=== PATIENT | female | born 1935 | race Caucasian/White ===

== ENCOUNTER 2020-04-12 11:51 | Emergency (ER) | payer MEDICARE, SELFPAY ==
--- NOTE | ~2020-04-12 | XR_ITS ---
[[id number] ] INDICATION: Left rib pain TECHNIQUE: Frontal projection of the upper left ribs, frontal projection of the lower left ribs, obli que projection of all the left ribs, frontal inspiratory chest x-ray for interpretation. FINDINGS: There are no displaced rib fractures identified. There are no soft tissue abnormality see n. There is a large hiatal hernia. There is left basilar atelectasis/scarring. There is a healed left humeral neck fracture. There are degenerative changes of the glenohumeral and acromioclavicular join ts on the left. IMPRESSION: 1:No displaced rib fractures. 2:Left basilar atelectasis/scarring. 3: Large hiatal hernia. Reviewed, dictated and finalized at location B. [employer] TECHNICIAN
--- NOTE | ~2020-04-12 | CT_ITS ---
EXAMINATION: CT lumbar spine wo con DATE: 04/12/2020 12:17 INDICATION: Left-sided back pain. Fall 5 days ago. TECHNIQUE: Computed tomography (CT) of the lumbar spine was performed without intravenous contrast. A utomated exposure control and iterative reconstruction technique were employed. The dose-length produ ct was 1111.46 mGy-cm. COMPARISON: None FINDINGS: There is 11 degrees levoscoliosis of the lumbar spine. There is 3 mm retrolisthesis of L2 o n L3 and 3 mm anterolisthesis of L4 on L5. Vertebral body heights are normal. There is severely decre ased disc height from L2-L3 through L4-L5. There are acute fractures of left 12th rib and left L1-L4 transverse processes. The following disc levels are specifically discussed: L1-L2: The disc is bulging. There is moderate bilateral facet joint osteoarthritis. There is mild mariia ateral neural foraminal stenosis. There is mild central canal stenosis. L2-L3: The disc is bulging. There is moderate bilateral facet joint osteoarthritis. There is moderate bilateral neural foraminal stenosis. There is mild central canal stenosis. L3-L4: The disc is bulging. There is severe bilateral facet joint osteoarthritis. There is mild right and moderate left neural foraminal stenosis. There is mild central canal stenosis. L4-L5: The disc is bulging. There is severe bilateral facet joint osteoarthritis. There is mild bilat eral neural foraminal stenosis. There is mild central canal stenosis. L5-S1: The disc is bulging. There is moderate right and severe left facet joint osteoarthritis. There is mild bilateral neural foraminal stenosis. There is mild central canal stenosis. IMPRESSION: 1. Acute fractures of left 12th rib and left L1-L4 transverse processes. 2. Severe lumbar spondylosis. 3. Thoracolumbar levoscoliosis. Reviewed, dictated and finalized at location A. [employer]ANT
[2020-04-12 12:00] VITALS: BP 127/116; PULSE 81; RESP 22; TEMP 36.6; O2SAT 98
--- NOTE | 2020-04-12 12:10 | ED.BACK ---
HPI - Back Pain/Injury General Chief Complaint: Back Pain/Injury Stated Complaint: fall/low back pain Time Seen by Provider: 04/12/20 11:56 Source: RN notes reviewed History of Present Illness HPI Narrative: Patient presents to emergency department from home for left lower back pain. Patient states that she was attempting use a stepstool when she fell landing right on her back on April 07 she states that since that time she has had pain in her left lower back with bruising present she denies striking her head or any other injuries states she did hit the side of her back on the frame of the bed she has been able get up and ambulate but notes increasing pain she is now taking pain medication today she denies any chest pain shortness of breath abdominal pain hematuria or any other symptoms denies any numbness or tingling in the extremities Related Data Home Medications Medication Instructions Recorded Confirmed fluoxetine mg 04/12/20 fluoxetine mg 04/12/20 Allergies Allergy/AdvReac Type Severity Reaction Status Date / Time No Known Allergies Allergy Verified 04/12/20 12:07 Review of Systems Review of Systems: Narrative: Gen.: Denies fevers or chills Eyes: Denies eye pain or visual change ENT: Denies congestion Respiratory: Denies shortness of breath or cough CV: Denies chest pain or palpitations GI: Denies abdominal pain nausea, emesis or diarrhea denies incontinence or hematuria Musculoskeletal: See HPI Neuro: Denies numbness, tingling, weakness or focal weakness Skin: Denies rash Except as documented, all other systems reviewed and negative PMFSH Past Medical History Medical History (Updated 04/12/20 @ 14:20 by Juan Mckeon DO) Patient denies significant medical history Social History Social History Smoking status: Never smoker Alcohol intake: current Exam Narrative: Exam Narrative: APPEARANCE: No acute distress, nontoxic, resting in bed EYES: EOMI HEENT: Normocephalic, atraumatic, OMM RESPIRATORY: No respiratory distress Clear to auscultation bilaterally with no rhonchi wheezing or rales. CARDIOVASCULAR: Regular rate and rhythm without murmurs rubs or gallops. ABDOMINAL: Soft, nontender, nondistended, no rebound or guarding MUSCULOSKELETAl: Moves all extremities. No clubbing, cyanosis or edema. Muscle strength 5 out of 5 in bilateral upper and lower extremities Back: No midline thoracic or lumbar tenderness palpation, tender palpation over the left paravertebral muscles L3-5 with ecchymosis present over the left lower back NEURO: Awake and alert. Following commands, speech normal, no focal deficits SKIN:: Warm, dry. No rashes lesions or abrasions PSYCHIATRIC: Normal affect/mood, Course Course Emergency Course: Called discussed with Dr. Tillman for neurosurgery presentation work-up discussed CT results. This time he states that patient does not require splint and that fractures are stable states patient may follow-up with him as an outpatient if needed but can follow-up with PCP with pain control Discussed with patient's PCP Dr. Andrew presentation work-up agrees with plan for discharge to follow-up as an outpatient Patient refusing pain medication in the ED states she will just take Tylenol at home as needed Discussed with patient results of workup and diagnosis. Discussed need for follow-up with primary care, proper use of medication, and reasons to return to the emergency department. Patient understands and agrees to current treatment plan Vital Signs Vital signs: Vital Signs Temperature 97.9 F 04/12/20 12:00 Pulse Rate 81 04/12/20 12:00 Respiratory Rate 22 H 04/12/20 12:00 Blood Pressure 127/116 H 04/12/20 12:00 Pulse Oximetry 98 04/12/20 12:00 Temperature 97.9 F 04/12/20 12:00 Pulse Rate 81 04/12/20 12:00 Respiratory Rate 22 H 04/12/20 12:00 Blood Pressure 127/116 H 04/12/20 12:00 Pulse Oximetry 98 0
[2020-04-12] MEDS: ACETAMINOPHEN 500 MG TABLET 1000 MG PO (12:45)
[2020-04-12 13:10] LABS: Add Urine Microscopic? NO; Appearance Urine Clear (Clear); Bilirubin Urine Negative (Negative); Blood Urine Negative (Negative); Color Urine Straw (Yellow); Glucose Urine UA Negative (Negative); Ketones Urine Negative (Negative); Leukocyte Esterase Ur Negative LEU/UL (Negative); Nitrate Urine Negative (Negative); Protein Urine Negative (Negative); Specific Grav Ur 1.011 (1.001-1.035); Urobilinogen Urine Negative mg/dL (<2.0)
== END 2020-04-12 14:57 | disposition home or self-care (01) ==
PROVIDERS: Emergency Provider Emergency Medicine; PCP Internal Medicine
DX: S32.019A Unspecified fracture of first lumbar vertebra, initial encounter for closed fracture (principal); S32.029A Unspecified fracture of second lumbar vertebra, initial encounter for closed fracture; S32.039A Unspecified fracture of third lumbar vertebra, initial encounter for closed fracture; S32.049A Unspecified fracture of fourth lumbar vertebra, initial encounter for closed fracture; S22.32XA Fracture of one rib, left side, initial encounter for closed fracture; W11.XXXA Fall on and from ladder, initial encounter
CPT/HCPCS: 71101; 72131; 81003; 99284; A9270

== ENCOUNTER 2020-05-21 08:07 | Emergency (ER) | payer MEDICARE, SELFPAY ==
[2020-05-21] VITALS (7 sets, daily range): BP systolic 128–132; BP diastolic 62–89; PULSE 73–81; RESP 12–20; TEMP 36.3; O2SAT 95–97
--- NOTE | ~2020-05-21 | XR_ITS ---
EXAMINATION: XR humerus RT DATE: 05/21/2020 08:44 INDICATION: Right upper arm deformity post fall TECHNIQUE: AP and lateral views of the right humerus were obtained. COMPARISON: None FINDINGS: Segmental fracture of the proximal to mid right humeral diaphysis with a pair of oblique fractures wh ich are by approximately 8 cm. 30 degree lateral and 15 degrees posterior angulation with r elatively mild posterior displacement of the more proximal fracture. There is 45 degree lateral and 6 0 degrees posterior angulation of significant anterior displacement and some proximal migration with overriding of the more distal fracture. Normal alignment at the right shoulder and elbow. Visualized portions of the lungs are clear. IMPRESSION: 1. Comminuted segmental fracture of the proximal to mid right humeral diaphysis with significant disp lacement and angulation. Reviewed, dictated and finalized at location A. IMPRESSION: 1. Comminuted segmental fracture of the proximal to mid right humeral diaphysis with significant displacement and angulation.
--- NOTE | ~2020-05-21 | CT_ITS ---
EXAMINATION: CT brain wo con DATE: 05/21/2020 10:11 INDICATION: Fall with head injury TECHNIQUE: Computed tomography (CT) of the head was performed without intravenous contrast. Sagittal and coronal reconstructions were performed. The mA was adjusted according to patient size. Iterative reconstruction technique was employed. The dose-length product was 605.33 mGy-cm. COMPARISON: head CT dated 08/28/2014 FINDINGS: No fracture. No acute intracranial hemorrhage or abnormal extra-axial fluid collection. Large region of encephalomalacia involving portions of the right frontal, parietal and temporal lobes and right ba lolita ganglia consistent with chronic infarct in the right middle cerebral artery vascular distribution . Additional smaller region of the cephalization consistent with chronic infarct in the right parieto -occipital region. No acute infarction. Mild ex vacuo dilation of the body, occipital and temporal ho rns of the right lateral ventricle. No mass/mass effect. Changes of bilateral intraocular lens replac ement. Mild mucosal thickening the bilateral ethmoid and maxillary sinuses. The mastoid air cells are normal. Intracranial calcified cerebral atherosclerosis is noted. IMPRESSION: 1. No fracture or acute intracranial process. 2. 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 Reviewed, dictated and finalized at location A. IMPRESSION: 1. No fracture or acute intracranial process. 2. Large chronic infarct involving the right middle cerebral artery vascular di stribution and moderate sized old infarct in the right posterior cerebral arter y vascular distribution.
--- NOTE | ~2020-05-21 | CT_ITS ---
EXAMINATION: CT cervical spine wo con DATE: 05/21/2020 10:11 INDICATION: Fall with head injury TECHNIQUE: Computed tomography (CT) of the cervical spine was performed without intravenous contrast. Automated exposure control and iterative reconstruction technique were employed. The dose-length pro duct was 443.45 mGy-cm. COMPARISON: None FINDINGS: Alignment is normal. Vertebral body heights are normal. No fracture. Lucent hemangioma with thickened internal trabecular pattern at T2. 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 Severe disc height loss at C5-C6 and C6-C7. Mild d isc height loss at C2-C3, C4-C5 and C7-T1. Moderate disc height loss at T1-T2. Minimal biapical pleur al-parenchymal scarring. Atherosclerotic calcification at the left carotid bulb. There is stenting at the right common and internal carotid arteries. The following disc levels are specifically discussed : C2-C3: Disc is mildly bulging. There is minimal bilateral uncovertebral joint osteoarthritis. There i s mild bilateral facet joint osteoarthritis. There is no neural foraminal stenosis. There is no centr al canal stenosis. C3-C4: Disc is bulging. There is mild right and moderate left uncovertebral joint osteoarthritis. The re is mild right and severe left facet joint osteoarthritis. There is mild left neural foraminal sten osis. There is mild central canal stenosis. C4-C5: The disc does not extend beyond the endplate margin. There is mild bilateral uncovertebral chantel nt osteoarthritis. There is mild right and moderate to severe left facet joint osteoarthritis. There is mild left neural foraminal stenosis. There is no central canal stenosis. C5-C6: Posterior disc osteophyte complex. There is severe bilateral uncovertebral joint osteoarthriti s. There is mild bilateral facet joint osteoarthritis. There is moderate right and mild to moderate l eft neural foraminal stenosis. There is mild central canal stenosis. C6-C7: Disc osteophyte complex. There is moderate to severe left and severe right uncovertebral joint osteoarthritis. There is moderate bilateral facet joint osteoarthritis. There is mild left and moder ate right neural foraminal stenosis. There is mild central canal stenosis. C7-T1: The disc does not extend beyond the endplate margin. There is minimal bilateral uncovertebral joint osteoarthritis. There is severe bilateral facet joint osteoarthritis. There is minimal bilatera l neural foraminal stenosis. There is no central canal stenosis. IMPRESSION: 1. Moderate to severe cervical spondylosis. No acute osseous abnormality. Reviewed, dictated and finalized at location A.
[2020-05-21] MEDS: MORPHINE SULFATE (*CRX) 4 MG/ML INJ IV PUSH ×2 (08:44→11:29)
[2020-05-21] MEDS: TETANUS,DIPHTHERIA,AC PERTUSSIS ADULT (0.5 ML) BOOSTRIX IM (08:44)
--- NOTE | 2020-05-21 08:47 | ED.GENADULT ---
HPI - General Adult General Chief complaint: Fall Stated complaint: Fall - arm deformity Time Seen by Provider: 05/21/20 08:21 Source: patient History of Present Illness HPI narrative: Patient is a 84 y/o female complaining of right upper arm pain after a fall. She describes her pain as throbbing and rates it as 3-4/10. There is no pain radiation. She states that movement aggravates her pain. She is not sure if she hit her head. Related Data Home Medications Medication Instructions Recorded Confirmed fluoxetine mg 04/12/20 aspirin 325 mg PO DAILY 05/21/20 atorvastatin 40 mg PO DAILY 05/21/20 calcium carbonate-vitamin D3 1 tablet PO DAILY 05/21/20 [calcium-vitamin D3] furosemide 40 05/21/20 levothyroxine [Synthroid] 05/21/20 pantoprazole PO 05/21/20 spironolactone 100 mg PO DAILY 05/21/20 Allergies Allergy/AdvReac Type Severity Reaction Status Date / Time No Known Allergies Allergy Verified 05/21/20 08:11 Review of Systems Constitutional: Constitutional: Denies chills, Denies fever(s), Denies headache(s) and Denies weakness Eyes: Eyes: Denies blurry vision ENT: Denies headache(s) and Denies neck pain Cardiovascular: Cardiovascular: Denies chest pain and Denies dyspnea Respiratory: Respiratory: Denies cough and Denies dyspnea Gastrointestinal: Gastrointestinal: Denies abdominal pain, Denies diarrhea, Denies nausea and Denies vomiting Genitourinary: Genitourinary: Denies hematuria and Denies dysuria Musculoskeletal: Musculoskeletal: Reports as per HPI, Denies back pain, Denies neck pain and Reports other (right arm pain) Neurologic: Denies headache(s) and Denies weakness [facility] Past Medical History Medical History (Updated 05/21/20 @ 11:20 by Nataliia Bui MD) Patient denies significant medical history Social History Social History Smoking status: Never smoker Alcohol intake: current Exam Const: General: no acute distress and well developed Orientation/consciousness: oriented to person, oriented to place, oriented to time and patient oriented x3 HENMT: Head: normocephalic Ears: external ears normal General nose exam: Normal external nose present Eyes: General: appearance normal, both eyes and all related structures Conjunctivae: conjunctivae normal Neck: Neck: normal visual inspection and full ROM Chest: Chest palpation & inspection: normal inspection of the chest and no tenderness Resp: Effort & Inspection: normal respiratory effort Auscultation: clear to auscultation bilaterally Cardio: Rate: regular rate Rhythm: regular rhythm Peripheral pulses: Peripheral pulses 2+ throughout GI: GI Palp: No abdominal tenderness and Yes Soft to palpation Skin: General skin exam: normal color and turgor normal Trauma: abrasion (left face) Neuro: General: oriented to person, oriented to place, oriented to time and patient oriented x3 Cognition (Neuro): normal cognition Extrem: General: no pedal edema Right upper extremity: shoulder/upper arm tenderness and deformity Psych: Appearance: grossly normal Mental Status: mental status grossly normal Affect: normal affect Course Consultations Consultation #1: Discussed with Dr. Carr, who recommends transfer. Date: 05/21/20 Time: 10:14 Consultation #2: Discussed with Dr. Valverde (EDP) at [place], who agrees to accept the patient for transfer. Date: 05/21/20 Time: 11:12 Vital Signs Vital signs: Vital Signs Temperature 36.3 C L 05/21/20 08:04 Pulse Rate 74 05/21/20 08:04 Respiratory Rate 20 05/21/20 08:04 Blood Pressure 130/76 05/21/20 08:04 Pulse Oximetry 97 05/21/20 08:04 Temperature 36.3 C L 05/21/20 11:59 Pulse Rate 76 05/21/20 11:09 Respiratory Rate 14 05/21/20 11:09 Blood Pressure 128/89 05/21/20 11:09 Pulse Oximetry 97 05/21/20 11:09 Medical Decision Making Vital Signs Vital Signs: Vital Signs Temperature 36.3 C L 05/02
--- NOTE | 2020-05-21 11:58 | PC.NURSE ---
Patient transferred to [place] ED at this time via [facility].
== END 2020-05-21 12:00 | disposition short-term general hospital (02) ==
PROVIDERS: Emergency Provider Emergency Medicine
DX: S42.351A Displaced comminuted fracture of shaft of humerus, right arm, initial encounter for closed fracture (principal); S00.81XA Abrasion of other part of head, initial encounter; Z23 Encounter for immunization; Z79.82 Long term (current) use of aspirin; W19.XXXA Unspecified fall, initial encounter
CPT/HCPCS: 11720; 29105; 70450; 72125; 73060; 90471; 90715; 96374; 96376; 99285; J2270